=== PATIENT | male | born 1960 | race Caucasian/White ===

== ENCOUNTER 2019-03-27 13:50 | Outpatient (CLI) | payer OTHER ==
--- NOTE | 2019-03-27 16:44 | CT ---
ABDOMEN CT WITH AND WITHOUT CONTRAST PELVIC CT WITH AND WITHOUT CONTRAST: Date: 03/27/19 HISTORY: Microscopic hematuria. COMPARISON: None. FINDINGS: ABDOMEN CT: Lung bases are clear. Normal heart size. No significant pericardial fluid. There are coronary artery calcifications. Descending thoracic aorta and abdominal aorta have a normal caliber. No periaortic fat stranding. Gallbladder is unremarkable. Portal vein is patent. Liver, spleen, pancreas, and adrenal glands have appropriate attenuation and enhancement. No gastrohepatic, retrocrural, or periportal lymphadenopathy. Small umbilical hernia containing mesenteric fat. There is mild stranding of the abdominal mesentery in the left hemiabdomen with upper normal lymph no josh. Correlate for mesenteric lymphadenitis. No mesenteric mass, free air, or free fluid. Limited evaluation of the alimentary canal by the lack of oral contrast. No evidence of small bowel o bstruction. Unremarkable ileocecal junction. Normal caliber appendix. Scattered fecal material in non distended, nondilated colon. Occasional diverticulum. No diverticulitis. Kidneys: Noncontrast images do not demonstrate any evidence of hydronephrosis or nephrolithiasis. Th ere is no perinephric fat stranding. Postcontrast images demonstrate symmetric enhancement of the kidneys. There is a 1.6 x 1.2 cm cyst in the right upper pole cortex. There is a 4.1 x 5.4 cm exophytic cyst in the posterior left renal shaun ex, mid pole. Delayed images demonstrate symmetric excretion in a normal appearing intra and extraren al collecting system, bilaterally. No filling defects. CT PELVIS: No mass, lymphadenopathy, free air, or free fluid. Prostate gland is unremarkable. Contrast opacifies the dependent portion of a normal appearing urinary bladder. OSSEOUS STRUCTURES: No lytic or blastic lesions. IMPRESSION: 1. No evidence of nephrolithiasis or obstructive uropathy. 2. Bilateral renal cortical cysts. 3. Nonspecific stranding of the abdominal mesentery with upper normal lymph nodes. Correlate for mes enteric lymphadenitis in the left hemiabdomen. 4. Normal caliber appendix. POS: OFF
== END 2019-03-27 13:51 | disposition home or self-care (01) ==
LOC: BICCT 13:50
PROVIDERS: ATTEND Physician Assistant
DX: R31.29 Other microscopic hematuria (principal); N28.1 Cyst of kidney, acquired
CPT/HCPCS: 74178

== ENCOUNTER 2023-12-06 07:59 | Outpatient (CLI) | payer BC | END 2023-12-06 08:00 | disposition home or self-care (01) | LOC: BICULT 07:59 | PROVIDERS: ATTEND Family Medicine | DX: R17 Unspecified jaundice (principal); N28.1 Cyst of kidney, acquired | CPT/HCPCS: 76700 ==